=== PATIENT | female | born 1940 | race Caucasian/White ===

== ENCOUNTER 2020-06-03 06:00 | Day surgery (SDC) | payer OTHER, MEDICARE ==
[~2020-06-03] VITALS: Ht 162.6 cm; Wt 81.6 kg
[~2020-06-03 06:00] MED LIST: ASPI-1155 PO; CYCLOBENZAPRINE PO; DULO60CA41 PO; ESOM20CA PO; HYDR200T38 PO; OXYC80TA28 PO; PREG150C PO; RAME8TAB15 PO; TRAM200T4 PO; ZOLP10TA6 PO; [UNRECOGNIZED DRUG - CODE] PO; [UNRECOGNIZED DRUG - CODE] PO
[2020-06-03] MEDS ORDERED: fentaNYL CITRATE 250 MCG/5 ML AMP IV ONE (06:01)
[2020-06-03] MEDS ORDERED: ONDANSETRON HCL 4 MG/2 ML VIAL IVP PRN (08:30)
[2020-06-03] MEDS ORDERED: MIDAZOLAM HCL 2 MG/2 ML VIAL (VERSED) IVP PRN (08:30)
[2020-06-03] MEDS ORDERED: METOCLOPRAMIDE HCL 10 MG/2 ML VIAL IVP PRN (08:30)
[2020-06-03] MEDS ORDERED: LR 1,000 ML IV SCH (08:30)
[2020-06-03] MEDS ORDERED: LABETALOL 100 MG/ 20ML VIAL IVP PRN (08:30)
[2020-06-03] MEDS ORDERED: HYDROmorphone 1 MG INJ. 1 MG/ML AMPUL IVP PRN ×2 (08:30)
[2020-06-03] MEDS ORDERED: MEPERIDINE HCL/PF 25 MG/ML DISP.SYRIN IVP PRN (08:30)
[2020-06-03] MEDS ORDERED: hydrALAZINE HCL 20 MG/ML VIAL IVP PRN (08:30)
[2020-06-03] MEDS ORDERED: LIDOCAINE/EPI 1% 1:100000 20 ML VIAL INJ ONE (08:58)
[2020-06-03] MEDS ORDERED: MIDAZOLAM HCL 5 MG/ML VIAL (VERSED) IV ONE (08:58)
[2020-06-03] MEDS ORDERED: ROCURONIUM BROMIDE 10 MG/ML (ZEMURON) ONE (08:58)
[2020-06-03] MEDS ORDERED: DESFLURANE 15 MIN GAS INH ONE (08:58)
[2020-06-03] MEDS ORDERED: OXYMETAZOLINE HCL 0.05% NASAL SPRAY NS ONE (08:58)
[2020-06-03] MEDS ORDERED: NS IRRIG SOLN 1000 ML IR ONE (08:58)
[2020-06-03] MEDS ORDERED: NS 500 ML IV.SOLN IV ONE (08:58)
[2020-06-03] MEDS ORDERED: ONDANSETRON HCL 4 MG/2 ML VIAL ONE (08:58)
[2020-06-03] MEDS ORDERED: DEXAMETHASONE SOD PHOSPHATE 4 MG/ML VIAL ONE (08:58)
[2020-06-03] MEDS ORDERED: LR 1,000 ML IV.SOLN IV ONE (08:58)
[2020-06-03] MEDS ORDERED: KETOROLAC TROMETHAMINE 30 MG VIAL ONE (08:58)
[2020-06-03] MEDS ORDERED: SUGAMMADEX SODIUM 200 MG/2 ML VIAL IV ONE (08:58)
[2020-06-03] MEDS ORDERED: PROPOFOL 200MG/ 20ML VIAL (DIPRIVAN) IV ONE (08:58)
[2020-06-03] MEDS ORDERED: HYDROmorphone 1 MG INJ. 1 MG/ML AMPUL ONE (09:45)
[2020-06-03] MEDS ORDERED: HYDROcodone/ACETAMIN 5-325 MG TAB (NORCO/ VICODIN) PO ONE (10:30)
[2020-06-03] MEDS ORDERED: HYDROcodone/ACETAMIN 5-325 MG TAB (NORCO/ VICODIN) ONE (10:43)
[2020-06-03 12:42] VITALS: BP_SYST 111
== END 2020-06-03 12:45 | disposition home or self-care (01) ==
LOC: SDS 06:00 → SMU 06:00 → SDS 12:45
PROVIDERS: ATTEND Otolaryngology
DX: H65.92 Unspecified nonsuppurative otitis media, left ear (principal); J32.0 Chronic maxillary sinusitis; D38.5 Neoplasm of uncertain behavior of other respiratory organs; H68.101 Unspecified obstruction of Eustachian tube, right ear; C50.819 Malignant neoplasm of overlapping sites of unspecified female breast; E11.610 Type 2 diabetes mellitus with diabetic neuropathic arthropathy; I10 Essential (primary) hypertension; J44.9 Chronic obstructive pulmonary disease, unspecified; M19.90 Unspecified osteoarthritis, unspecified site; M54.9 Dorsalgia, unspecified; Z86.73 Personal history of transient ischemic attack (TIA), and cerebral infarction without residual deficits; Z20.828 Contact with and (suspected) exposure to other viral communicable diseases; Z79.899 Other long term (current) drug therapy
CPT/HCPCS: 31256; 69436; 82962; C9399; J1100; J1170; J1885; J2250; J2405; J2704; J3010; J7040; J7120; L8699; U0003